=== PATIENT | male | born 1955 | race Two or more races ===

== ENCOUNTER 2017-07-15 02:08 | Emergency (ER) | payer MEDICAID ==
[~2017-07-15] VITALS: Ht 160 cm; Wt 77.6 kg
[2017-07-15 02:51] LABS: Urine RBC None Seen /hpf (0 - 3)
[2017-07-15 03:10] LABS: Basophils # (auto) 0 uL; Basophils % (auto) 0.5 % (0.0-2.0); Eosinophils # (auto) 0 uL; Eosinophils % (auto) 0.3 % (0.0-7.0); Hematocrit 47.5 % (41.0-53.0); Hemoglobin 16.3 g/dL (13.5-17.5); Lymphocytes # (auto) 1.3 uL; Lymphocytes % (auto) 17.5 % (10.0-50.0); Mean Corpuscular Hgb Conc. 34.4 g/dL (32.0-36.0); Monocytes # (auto) 0.3 uL; Monocytes % (auto) 3.9 % (0.0-12.0); Neutrophils # (auto) 5.9 uL; Neutrophils % (auto) 77.8 % (37.0-80.0); Nucleated Red Blood Cells % 0.1 %; Platelet Count (auto) 231 10^3/uL (140-450); Red Cell Distribution Width 12.9 % (11.8-14.3); White Blood Cell 7.6 10^3/uL (4.4-10.8)
[2017-07-15 03:17] LABS: Albumin 3.7 g/dL (3.4-5.0); Anion Gap 8 (5-15); Aspartate Aminotransferase 13 U/L (15-37); BUN/Creatinine Ratio 20.2; Blood Urea Nitrogen 19 mg/dL (7-18); Calcium 8.3 mg/dL (8.5-10.1); Carbon Dioxide 24 mmol/L (21-32); Chloride 107 mmol/L (98-107); GFR African American 105 mL/min; GFR Non-African American 87 mL/min; Glucose 106 mg/dL (74-106); Magnesium 2.4 mg/dL (1.6-2.6); Potassium 4.2 mmol/L (3.5-5.1); Sodium 139 mmol/L (136-145)
[2017-07-15 03:22] LABS: Alkaline Phosphatase 56 U/L (45-117); Bilirubin, Total 1.7 mg/dL (0.2-1.0); Total Protein 7.4 g/dL (6.4-8.2)
[2017-07-15 03:31] LABS: Urine Bilirubin Negative (Negative); Urine Blood Negative /uL (Negative); Urine Color Yellow (Yellow); Urine Glucose Normal (Normal); Urine Ketone 3+ (Negative); Urine Mucus FEW (None Seen); Urine Nitrite Negative (Negative)
[2017-07-15 06:33] VITALS: BP 145/87
[2017-07-15] MEDS ORDERED: KETOROLAC TROMETH 30 MG/ML 1ML VIAL IV ONE (06:45)
== END 2017-07-15 06:43 | disposition home or self-care (01) ==
LOC: ER 02:08
DX: R10.13 Epigastric pain (principal); R11.2 Nausea with vomiting, unspecified; R19.7 Diarrhea, unspecified; I10 Essential (primary) hypertension; Z90.49 Acquired absence of other specified parts of digestive tract
CPT/HCPCS: 36415; 74176; 80053; 81001; 82150; 83690; 83735; 84484; 85025; 93005; 96374; 99285; J1885

== ENCOUNTER 2020-01-07 06:26 | Emergency (ER) | payer MEDICAID ==
[~2020-01-07] VITALS: Ht 160 cm; Wt 76.2 kg
[2020-01-07 07:51] LABS: Basophils # (auto) 0.1 10 ^3/uL (0-0.2); Basophils % (auto) 0.7 % (0.0-2.0); Eosinophils # (auto) 0.1 10 ^3/uL (0-0.8); Eosinophils % (auto) 0.7 % (0.0-7.0); Hematocrit 49.1 % (41.0-53.0); Hemoglobin 16.7 g/dL (13.5-17.5); Lymphocytes % (auto) 11.6 % (10.0-50.0); Mean Corpuscular Hemoglobin 31.7 pg (28.0-32.0); Mean Corpuscular Volume 93.2 fL (80.0-100.0); Monocytes # (auto) 0.4 10 ^3/uL (0-1.3); Monocytes % (auto) 4.3 % (0.0-12.0); Neutrophils # (auto) 7.3 10 ^3/uL (1.6-8.6); Neutrophils % (auto) 82.7 % (37.0-80.0); Platelet Count (auto) 223 10^3/uL (140-450); Red Blood Cells 5.27 10^6/uL (4.5-5.90); White Blood Cell 8.8 10^3/uL (4.4-10.8)
[2020-01-07 08:07] LABS: Chloride 106 mmol/L (98-107); Sodium 138 mmol/L (136-145)
[2020-01-07 08:20] LABS: Alanine Aminotransferase 23 U/L (16-61); Albumin 3.7 g/dL (3.4-5.0); Alkaline Phosphatase 64 U/L (45-117); Anion Gap 2 (5-15); Aspartate Aminotransferase 10 U/L (15-37); BUN/Creatinine Ratio 12.5; Bilirubin, Total 1.4 mg/dL (0.2-1.0); Blood Urea Nitrogen 14 mg/dL (7-18); Calcium 8.8 mg/dL (8.5-10.1); Carbon Dioxide 30 mmol/L (21-32); GFR African American 85 mL/min; GFR Non-African American 71 mL/min; Glucose 117 mg/dL (74-106); Total Protein 7.8 g/dL (6.4-8.2)
[2020-01-07] MEDS ORDERED: IOHEXOL 350 MG/ML 100ML IJ ONE (08:27)
[2020-01-07 10:00] VITALS: BP 125/70
== END 2020-01-07 10:38 | disposition home or self-care (01) ==
LOC: ER 06:26
DX: M54.6 Pain in thoracic spine (principal); F41.9 Anxiety disorder, unspecified; M79.18 Myalgia, other site; E78.5 Hyperlipidemia, unspecified; I10 Essential (primary) hypertension
CPT/HCPCS: 36415; 71045; 71275; 80053; 84484; 85025; 99285; Q9967

== ENCOUNTER 2023-08-24 05:33 | Emergency (ER) | payer MEDICARE, MEDICAID ==
[~2023-08-24] VITALS: Ht 162.6 cm; Wt 79.4 kg
[2023-08-24 06:30] VITALS: BP 143/89; PULSE 95; RESP 20; TEMP 98.1; O2SAT 96
[2023-08-24] MEDS ORDERED: HYDR50TA69 PO (06:52)
[2023-08-24] MEDS ORDERED: PRED20TA2 PO (06:52)
[2023-08-24] MEDS ORDERED: FAMO20TA10 PO (06:52)
[2023-08-24] MEDS ORDERED: DexAMETHasone SOD PHOS 10MG/1ML VIAL INJ IM ONE (07:00)
== END 2023-08-24 07:08 | disposition home or self-care (01) ==
LOC: ER 05:33
DX: T78.49XA Other allergy, initial encounter (principal); L50.9 Urticaria, unspecified; Z79.899 Other long term (current) drug therapy; X58.XXXA Exposure to other specified factors, initial encounter
CPT/HCPCS: 96372; 99283; J1100

== ENCOUNTER 2023-09-04 07:47 | Inpatient (IN) | payer MEDICARE, MEDICAID ==
[~2023-09-04] VITALS: Ht 160 cm; Wt 77.6 kg
[~2023-09-04 07:47] MED LIST: FAMO20TA10 PO; HYDR50TA69 PO; PRED20TA2 PO
[2023-09-04] MEDS: LIDOCAINE W/ EPINEPHRINE 1.5 % INJ 5ML AMP IJ ONE (08:30)
[2023-09-04] MEDS: ACETAMINOPHEN 500 MG TAB PO ONE (08:33)
[2023-09-04] MEDS: cefTRIAXone 1GM/50ML D5W 50 ML IV ONE ×2 (09:15→20:17)
[2023-09-04] MEDS: SODIUM CHLORIDE 0.9% 1,000 ML IVB ONE (09:21)
[2023-09-04 09:42] LABS: Basophils # (auto) 0.1 10 ^3/uL (0-0.2); Basophils % (auto) 0.4 % (0.0-2.0); Eosinophils # (auto) 0.1 10 ^3/uL (0-0.8); Eosinophils % (auto) 0.5 % (0.0-7.0); Hematocrit 45.7 % (41.0-53.0); Hemoglobin 15.4 g/dL (13.5-17.5); Lymphocytes % (auto) 5.1 % (10.0-50.0); Mean Corpuscular Hemoglobin 31.5 pg (28.0-32.0); Mean Corpuscular Hgb Conc. 33.8 g/dL (32.0-36.0); Mean Corpuscular Volume 93.2 fL (80.0-100.0); Monocytes # (auto) 1.6 10 ^3/uL (0-1.3); Monocytes % (auto) 8.6 % (0.0-12.0); Neutrophils # (auto) 16.3 10 ^3/uL (1.6-8.6); Neutrophils % (auto) 85.4 % (37.0-80.0); Nucleated Red Blood Cells % 0.1 %; Red Cell Distribution Width 13.9 % (11.8-14.3); White Blood Cell 19.1 10^3/uL (4.4-10.8)
[2023-09-04] MEDS: KETOROLAC TROMETH 30 MG/ML 1ML VIAL IV ONE (09:58)
[2023-09-04 09:59] LABS: Chloride 104 mmol/L (98-107); Sodium 134 mmol/L (136-145)
[2023-09-04 10:00] LABS: Anion Gap 6 (5-15); Calcium 8.9 mg/dL (8.5-10.1); Carbon Dioxide 24 mmol/L (20-30)
[2023-09-04 10:06] LABS: BUN/Creatinine Ratio 14.9 (10.0-20.0); Blood Urea Nitrogen 15 mg/dL (9-23); Glucose 113 mg/dL (74-106)
[2023-09-04] MEDS: IOHEXOL 300 MG/ML 100ML BOTTLE IJ ONE (10:41)
[2023-09-04 14:04] LABS: INR 1.09 (0.9-1.15); Prothrombin Time 11.4 sec (9.3-11.8)
[2023-09-04] MEDS: CLINDAMYCIN 300MG IV 50 ML IV ONE (19:57)
[2023-09-04] MEDS: CLINDAMYCIN 300MG IV 50 ML IV SCH (20:18)
[2023-09-04] MEDS: ACETAMINOPHEN 325 MG TAB PO PRN (20:18)
[2023-09-04] MEDS: PANTOPRAZOLE 40 MG/10 ML VIAL INJ IV ONE (20:18)
[2023-09-04] MEDS: SODIUM CHLORIDE 0.9% 1,000 ML IV SCH (20:19)
[2023-09-04] MEDS: ASCORBIC ACID 500 MG TAB PO SCH (21:39)
[2023-09-05 06:01] LABS: Basophils # (auto) 0.1 10 ^3/uL (0-0.2); Basophils % (auto) 0.3 % (0.0-2.0); Eosinophils # (auto) 0.1 10 ^3/uL (0-0.8); Eosinophils % (auto) 0.7 % (0.0-7.0); Hematocrit 41.7 % (41.0-53.0); Lymphocytes # (auto) 1.1 10 ^3/uL (0.4-5.4); Lymphocytes % (auto) 4.7 % (10.0-50.0); Mean Corpuscular Hemoglobin 31.3 pg (28.0-32.0); Mean Corpuscular Hgb Conc. 33.6 g/dL (32.0-36.0); Mean Corpuscular Volume 93.1 fL (80.0-100.0); Monocytes # (auto) 2.1 10 ^3/uL (0-1.3); Monocytes % (auto) 9.2 % (0.0-12.0); Neutrophils # (auto) 19.2 10 ^3/uL (1.6-8.6); Neutrophils % (auto) 85.1 % (37.0-80.0); Red Blood Cells 4.48 10^6/uL (4.5-5.90); Red Cell Distribution Width 13.9 % (11.8-14.3); White Blood Cell 22.5 10^3/uL (4.4-10.8)
[2023-09-05 06:19] LABS: Alanine Aminotransferase 36 U/L (7-40); Albumin 3.4 g/dL (3.2-4.8); Alkaline Phosphatase 82 U/L (46-116); Anion Gap 4 (5-15); Aspartate Aminotransferase 15 U/L (13-40); BUN/Creatinine Ratio 17.7 (10.0-20.0); Blood Urea Nitrogen 20 mg/dL (9-23); Calcium 8.3 mg/dL (8.7-10.4); Carbon Dioxide 24 mmol/L (20-30); Chloride 108 mmol/L (98-107); Glucose 96 mg/dL (74-106); Potassium 4.5 mmol/L (3.5-5.1); Sodium 136 mmol/L (136-145)
[2023-09-05 06:20] LABS: Bilirubin, Total 1.6 mg/dL (0.2-1.0)
[2023-09-05] MEDS: cefTRIAXone 1GM/50ML D5W 50 ML IV SCH (08:58)
[2023-09-05 09:30] VITALS: BP 130/67; PULSE 97; RESP 17; TEMP 98.2; O2SAT 97
[2023-09-05] MEDS: MULTIPLE VITAMIN TAB PO SCH (10:00)
[2023-09-05] MEDS: ZINC SULFATE 220mg CAP or TAB PO SCH (10:00)
[2023-09-05] MEDS: DOXYCYCLINE 100MG/250ML 250 ML IV SCH (10:48)
[2023-09-05] MEDS: PANTOPRAZOLE 40 MG/10 ML VIAL INJ IV SCH (10:48)
[2023-09-05] MEDS ORDERED: LOSA50TA46 PO (12:02)
[2023-09-05] MEDS ORDERED: TAMS1CAP25 PO (12:02)
[2023-09-05 14:24] LABS: Magnesium 2.3 mg/dL (1.6-2.6)
[2023-09-05 17:00] VITALS: BP 113/59; PULSE 87; RESP 17; TEMP 98.8; O2SAT 96
[2023-09-05] MEDS: PIPERACILLIN-TAZOB 3.375GM 100 ML IV SCH (17:01)
[2023-09-05 20:00] VITALS: BP 123/59; PULSE 98; RESP 20; RESP 22; TEMP 99.5; O2SAT 96
[2023-09-05 21:09] LABS: Urine Bacteria NONE SEEN /hpf (None Seen); Urine Blood Negative /uL (Negative); Urine Clarity Clear (Clear); Urine Color Colorless (Yellow); Urine Protein, UAD Negative (Negative); Urine Specific Gravity 1.016 (1.001-1.035); Urine Urobilinogen Normal (Negative); Urine WBC 2 /hpf (0 - 3)
[2023-09-05 22:00] VITALS: BP 123/69; PULSE 105; RESP 20; TEMP 101; O2SAT 96
[2023-09-06 05:00] VITALS: BP 125/76; PULSE 99; RESP 16; TEMP 99.8; O2SAT 96
[2023-09-06] MEDS ORDERED: SODIUM CHLORIDE 0.9% 1,000 ML IV SCH (07:00)
[2023-09-06 07:18] LABS: Basophils # (auto) 0.1 10 ^3/uL (0-0.2); Basophils % (auto) 0.2 % (0.0-2.0); Eosinophils # (auto) 0.1 10 ^3/uL (0-0.8); Eosinophils % (auto) 0.7 % (0.0-7.0); Hematocrit 34.5 % (41.0-53.0); Hemoglobin 11.5 g/dL (13.5-17.5); Lymphocytes # (auto) 1.3 10 ^3/uL (0.4-5.4); Lymphocytes % (auto) 5.9 % (10.0-50.0); Mean Corpuscular Hemoglobin 30.7 pg (28.0-32.0); Mean Corpuscular Hgb Conc. 33.3 g/dL (32.0-36.0); Mean Corpuscular Volume 92.2 fL (80.0-100.0); Monocytes # (auto) 1.6 10 ^3/uL (0-1.3); Monocytes % (auto) 7.6 % (0.0-12.0); Neutrophils # (auto) 18.2 10 ^3/uL (1.6-8.6); Neutrophils % (auto) 85.6 % (37.0-80.0); Red Blood Cells 3.74 10^6/uL (4.5-5.90); Red Cell Distribution Width 14.1 % (11.8-14.3); White Blood Cell 21.3 10^3/uL (4.4-10.8)
[2023-09-06 07:19] LABS: Alanine Aminotransferase 24 U/L (7-40); Albumin 2.2 g/dL (3.2-4.8); Alkaline Phosphatase 62 U/L (46-116); Anion Gap 7 (5-15); Aspartate Aminotransferase 11 U/L (13-40); BUN/Creatinine Ratio 15.9 (10.0-20.0); Blood Urea Nitrogen 10 mg/dL (9-23); Carbon Dioxide 18 mmol/L (20-30); Chloride 117 mmol/L (98-107); Glucose 72 mg/dL (74-106); Sodium 142 mmol/L (136-145)
[2023-09-06 07:20] LABS: Bilirubin, Total 1.2 mg/dL (0.2-1.0); Total Protein 3.9 g/dL (5.7-8.2)
[2023-09-06 07:26] LABS: Magnesium 1.3 mg/dL (1.6-2.6)
[2023-09-06 07:27] LABS: Calcium 5.4 mg/dL (8.7-10.4)
[2023-09-06 09:00] VITALS: BP 135/74; PULSE 91; RESP 20; TEMP 99.6; O2SAT 96
[2023-09-06] MEDS ORDERED: VANCOMYCIN PER PHARMACY 0 MG IV SCH (11:30)
[2023-09-06] MEDS: PANTOPRAZOLE 40 MG TAB PO SCH (11:36)
[2023-09-06] MEDS: MAGNESIUM SULFATE 1GM/100ML 100 ML IV SCH (11:36)
[2023-09-06] MEDS: POTASSIUM CHL 20 Meq TABLET PO ONE (11:37)
[2023-09-06 13:00] VITALS: BP 132/81; PULSE 94; RESP 18; TEMP 99.6; O2SAT 97
[2023-09-06 13:37] LABS: Alanine Aminotransferase 38 U/L (7-40); Albumin 3.4 g/dL (3.2-4.8); Alkaline Phosphatase 85 U/L (46-116); Anion Gap 5 (5-15); Aspartate Aminotransferase 18 U/L (13-40); BUN/Creatinine Ratio 12.2 (10.0-20.0); Bilirubin, Total 1.5 mg/dL (0.2-1.0); Blood Urea Nitrogen 11 mg/dL (9-23); Calcium 8.1 mg/dL (8.7-10.4); Carbon Dioxide 23 mmol/L (20-30); Chloride 106 mmol/L (98-107); Glucose 105 mg/dL (74-106); Magnesium 2.5 mg/dL (1.6-2.6); Potassium 4.2 mmol/L (3.5-5.1); Sodium 134 mmol/L (136-145); Total Protein 6.1 g/dL (5.7-8.2)
[2023-09-06] MEDS: OMNIPAQUE 12mg/ml 500ml ORAL SOLUTION PO ONE (14:30)
[2023-09-06] MEDS ORDERED: OMNIPAQUE 12mg/ml 500ml ORAL SOLUTION PO ONE (14:30)
[2023-09-06] MEDS: VANCOMYCIN 1GM/200ML 200 ML IV ONE (15:20)
[2023-09-06] MEDS: CALCIUM GLUC 1,000mg/50ml-NS 50 ML IV ONE (16:57)
[2023-09-06 17:00] VITALS: BP 135/81; PULSE 90; RESP 20; TEMP 98.4; O2SAT 97
[2023-09-06 20:00] VITALS: BP 119/71; PULSE 85; RESP 22; TEMP 98.1; O2SAT 96
[2023-09-06 22:00] VITALS: BP 119/71; PULSE 85; RESP 22; TEMP 98.1; O2SAT 96
[2023-09-07] VITALS (7 sets, daily range): BP systolic 116–136; BP diastolic 67–84; PULSE 74–91; RESP 17–20; TEMP 98.1–98.8; O2SAT 92–97
[2023-09-07] MEDS: VANCOMYCIN 1GM/200ML 200 ML IV SCH (01:26)
[2023-09-07 06:41] LABS: Basophils # (auto) 0.1 10 ^3/uL (0-0.2); Basophils % (auto) 0.5 % (0.0-2.0); Eosinophils # (auto) 0.3 10 ^3/uL (0-0.8); Eosinophils % (auto) 1.5 % (0.0-7.0); Hematocrit 44.9 % (41.0-53.0); Lymphocytes # (auto) 2.2 10 ^3/uL (0.4-5.4); Lymphocytes % (auto) 10.1 % (10.0-50.0); Mean Corpuscular Hemoglobin 31.5 pg (28.0-32.0); Mean Corpuscular Hgb Conc. 33.4 g/dL (32.0-36.0); Mean Corpuscular Volume 94.3 fL (80.0-100.0); Monocytes # (auto) 1.5 10 ^3/uL (0-1.3); Monocytes % (auto) 7.1 % (0.0-12.0); Neutrophils # (auto) 17.4 10 ^3/uL (1.6-8.6); Neutrophils % (auto) 80.8 % (37.0-80.0); Red Blood Cells 4.76 10^6/uL (4.5-5.90); Red Cell Distribution Width 14.1 % (11.8-14.3); White Blood Cell 21.5 10^3/uL (4.4-10.8)
[2023-09-07 06:52] LABS: Alanine Aminotransferase 62 U/L (7-40); Albumin 3.9 g/dL (3.2-4.8); Alkaline Phosphatase 107 U/L (46-116); Anion Gap 9 (5-15); Aspartate Aminotransferase 29 U/L (13-40); BUN/Creatinine Ratio 9.2 (10.0-20.0); Bilirubin, Total 1.8 mg/dL (0.2-1.0); Blood Urea Nitrogen 9 mg/dL (9-23); Calcium 8.8 mg/dL (8.7-10.4); Carbon Dioxide 21 mmol/L (20-30); Chloride 106 mmol/L (98-107); Glucose 101 mg/dL (74-106); Magnesium 2.5 mg/dL (1.6-2.6); Potassium 4.2 mmol/L (3.5-5.1); Sodium 136 mmol/L (136-145)
[2023-09-07 06:53] LABS: Total Protein 7.1 g/dL (5.7-8.2)
[2023-09-07 07:19] LABS: CRP High Sensitivity 18.77 mg/dL (<1.0)
[2023-09-07] MEDS: HYDROcodone-ACET 5/325MG TAB PO PRN (11:47)
[2023-09-07] MEDS ORDERED: fentaNYL CITRATE 100 MCG/2 ML VL ONE (13:48)
[2023-09-07] MEDS ORDERED: DexAMETHasone SOD PHOS 10MG/1ML VIAL INJ ONE (14:14)
[2023-09-07] MEDS ORDERED: PROPOFOL 10 MG/ML 20 ML IV ONE (14:14)
[2023-09-07] MEDS ORDERED: ONDANSETRON HCL 4 MG/2 ML VIAL ONE (14:14)
[2023-09-07] MEDS ORDERED: MEPERIDINE HCL (50 MG/ML) 1 ML VIAL ONE (14:15)
[2023-09-07] MEDS ORDERED: HYDROmorphone HCL 2 MG/ML VL/or syr IV PRN (15:00)
[2023-09-07] MEDS ORDERED: ONDANSETRON HCL 4 MG/2 ML VIAL IV PRN (15:00)
[2023-09-07] MEDS ORDERED: MEPERIDINE HCL (25 MG/ML) 1ML VIAL IV PRN (15:00)
[2023-09-08] VITALS (7 sets, daily range): BP systolic 122–134; BP diastolic 69–82; PULSE 67–81; RESP 18–19; TEMP 97.4–98; O2SAT 95–99
[2023-09-08 06:32] LABS: Basophils # (auto) 0 10 ^3/uL (0-0.2); Basophils % (auto) 0.1 % (0.0-2.0); Eosinophils # (auto) 0 10 ^3/uL (0-0.8); Hematocrit 44.5 % (41.0-53.0); Hemoglobin 14.7 g/dL (13.5-17.5); Lymphocytes # (auto) 1.3 10 ^3/uL (0.4-5.4); Lymphocytes % (auto) 7.2 % (10.0-50.0); Mean Corpuscular Hgb Conc. 33.1 g/dL (32.0-36.0); Mean Corpuscular Volume 93.8 fL (80.0-100.0); Monocytes # (auto) 0.4 10 ^3/uL (0-1.3); Monocytes % (auto) 2.3 % (0.0-12.0); Neutrophils # (auto) 16.8 10 ^3/uL (1.6-8.6); Neutrophils % (auto) 90.4 % (37.0-80.0); Red Blood Cells 4.75 10^6/uL (4.5-5.90); White Blood Cell 18.6 10^3/uL (4.4-10.8)
[2023-09-08 06:50] LABS: Alanine Aminotransferase 80 U/L (7-40); Albumin 3.8 g/dL (3.2-4.8); Alkaline Phosphatase 100 U/L (46-116); Anion Gap 7 (5-15); Aspartate Aminotransferase 43 U/L (13-40); BUN/Creatinine Ratio 14.1 (10.0-20.0); Blood Urea Nitrogen 14 mg/dL (9-23); Calcium 8.8 mg/dL (8.7-10.4); Carbon Dioxide 22 mmol/L (20-30); Chloride 105 mmol/L (98-107); Glucose 129 mg/dL (74-106); Magnesium 2.2 mg/dL (1.6-2.6); Potassium 4.4 mmol/L (3.5-5.1); Sodium 134 mmol/L (136-145)
[2023-09-08 06:51] LABS: Bilirubin, Total 1.1 mg/dL (0.2-1.0)
[2023-09-08] MEDS: VANCOMYCIN 1GM/200ML 200 ML IV SCH (11:23)
[2023-09-08] MEDS ORDERED: ONDANSETRON HCL 4 MG/2 ML VIAL IV PRN (16:00)
[2023-09-08] MEDS: MEROPENEM 1GM IVPB 50 ML IV SCH (22:04)
[2023-09-09] VITALS (7 sets, daily range): BP systolic 124–147; BP diastolic 80–92; PULSE 71–85; RESP 16–18; TEMP 97.5–98.2; O2SAT 94–99
[2023-09-09] MEDS ORDERED: VANCOMYCIN 1GM/200ML 200 ML IV SCH
[2023-09-09 06:13] LABS: Basophils # (auto) 0.1 10 ^3/uL (0-0.2); Basophils % (auto) 0.4 % (0.0-2.0); Eosinophils # (auto) 0.1 10 ^3/uL (0-0.8); Eosinophils % (auto) 0.9 % (0.0-7.0); Hematocrit 43.2 % (41.0-53.0); Hemoglobin 14.2 g/dL (13.5-17.5); Lymphocytes # (auto) 2.8 10 ^3/uL (0.4-5.4); Lymphocytes % (auto) 17.5 % (10.0-50.0); Mean Corpuscular Hemoglobin 30.8 pg (28.0-32.0); Mean Corpuscular Hgb Conc. 32.8 g/dL (32.0-36.0); Mean Corpuscular Volume 94.1 fL (80.0-100.0); Monocytes # (auto) 0.9 10 ^3/uL (0-1.3); Monocytes % (auto) 5.8 % (0.0-12.0); Neutrophils % (auto) 75.4 % (37.0-80.0); Red Blood Cells 4.59 10^6/uL (4.5-5.90); Red Cell Distribution Width 13.9 % (11.8-14.3)
[2023-09-09 06:29] LABS: Carbon Dioxide 24 mmol/L (20-30); Chloride 107 mmol/L (98-107); Sodium 139 mmol/L (136-145)
[2023-09-09 06:30] LABS: Calcium 8.7 mg/dL (8.7-10.4)
[2023-09-09 06:35] LABS: BUN/Creatinine Ratio 18.4 (10.0-20.0); Blood Urea Nitrogen 19 mg/dL (9-23); Glucose 95 mg/dL (74-106); Magnesium 2.2 mg/dL (1.6-2.6)
[2023-09-09 06:38] LABS: Anion Gap 8 (5-15)
[2023-09-10 05:17] VITALS: BP 138/72; PULSE 84; RESP 18; TEMP 98; O2SAT 96
[2023-09-10 06:53] LABS: Basophils # (auto) 0.1 10 ^3/uL (0-0.2); Basophils % (auto) 1.2 % (0.0-2.0); Eosinophils # (auto) 0.3 10 ^3/uL (0-0.8); Eosinophils % (auto) 3.5 % (0.0-7.0); Hematocrit 45.4 % (41.0-53.0); Hemoglobin 14.8 g/dL (13.5-17.5); Lymphocytes # (auto) 1.6 10 ^3/uL (0.4-5.4); Lymphocytes % (auto) 16.9 % (10.0-50.0); Mean Corpuscular Hemoglobin 30.7 pg (28.0-32.0); Mean Corpuscular Hgb Conc. 32.6 g/dL (32.0-36.0); Mean Corpuscular Volume 94.2 fL (80.0-100.0); Monocytes # (auto) 0.7 10 ^3/uL (0-1.3); Monocytes % (auto) 7.2 % (0.0-12.0); Neutrophils # (auto) 6.7 10 ^3/uL (1.6-8.6); Neutrophils % (auto) 71.2 % (37.0-80.0); Nucleated Red Blood Cells % 0.1 %; Red Blood Cells 4.82 10^6/uL (4.5-5.90); Red Cell Distribution Width 14.1 % (11.8-14.3); White Blood Cell 9.4 10^3/uL (4.4-10.8)
[2023-09-10 07:08] LABS: Alanine Aminotransferase 146 U/L (7-40); Albumin 3.6 g/dL (3.2-4.8); Alkaline Phosphatase 77 U/L (46-116); Anion Gap 8 (5-15); Aspartate Aminotransferase 46 U/L (13-40); BUN/Creatinine Ratio 19.4 (10.0-20.0); Blood Urea Nitrogen 18 mg/dL (9-23); Calcium 8.7 mg/dL (8.7-10.4); Carbon Dioxide 24 mmol/L (20-30); Chloride 106 mmol/L (98-107); Glucose 97 mg/dL (74-106); Magnesium 2.3 mg/dL (1.6-2.6); Sodium 138 mmol/L (136-145)
[2023-09-10 07:09] LABS: Bilirubin, Total 0.8 mg/dL (0.2-1.0); Total Protein 6.6 g/dL (5.7-8.2)
[2023-09-10 08:00] VITALS: PULSE 74; RESP 16; O2SAT 99
[2023-09-10 08:49] VITALS: BP 147/95; PULSE 106; RESP 19; TEMP 98.2; O2SAT 97
[2023-09-10] MEDS: ERTAPENEM SOD INJ 1 GM in SODIUM CHL 0.9% 50 ML IV SCH (10:55)
[2023-09-10 13:00] VITALS: BP 151/82; PULSE 83; RESP 16; TEMP 98.6; O2SAT 97
[2023-09-10] MEDS: LOSARTAN POTASSIUM 50 MG TAB PO ONE (15:22)
[2023-09-11] MEDS ORDERED: LOSARTAN POTASSIUM 50 MG TAB PO SCH (10:00)
== END 2023-09-10 15:20 | disposition home health service (06) | DRG 854 ==
LOC: ER 07:47 → OVERFLOW 12:47 → EAST 09-05 09:30
PROVIDERS: ADMIT Internal Medicine Geriatric Medicine; ATTEND Internal Medicine Geriatric Medicine
PROC: 0D9Q0ZZ Drainage of Anus, Open Approach (ICD-10-PCS; principal; 2023-09-07 14:06)
PROC: 05HC33Z Insertion of Infusion Device into Left Basilic Vein, Percutaneous Approach (ICD-10-PCS; 2023-09-09)
PROC: B54NZZA Ultrasonography of Left Upper Extremity Veins, Guidance (ICD-10-PCS; 2023-09-09)
DX: A41.9 Sepsis, unspecified organism (principal); K61.0 Anal abscess; L03.317 Cellulitis of buttock; K57.30 Diverticulosis of large intestine without perforation or abscess without bleeding; K76.0 Fatty (change of) liver, not elsewhere classified; N40.0 Benign prostatic hyperplasia without lower urinary tract symptoms; E78.5 Hyperlipidemia, unspecified; I25.10 Atherosclerotic heart disease of native coronary artery without angina pectoris; E80.6 Other disorders of bilirubin metabolism; E83.42 Hypomagnesemia; E87.6 Hypokalemia; E83.51 Hypocalcemia
CPT/HCPCS: 36415; 71045; 74177; 80048; 80053; 80061; 80202; 81001; 83605; 83735; 84443; 85025; 85610; 86141; 87040; 87070; 87075; 87076; 87077; 87081; 87186; 87205; 93005; C9113; G0378; J1100; J1335; J1885; J2185; J2405; J2543; J2704; J3490

== ENCOUNTER 2024-02-07 04:07 | Emergency (ER) | payer MEDICARE, MEDICAID ==
[~2024-02-07] VITALS: Ht 162.6 cm; Wt 74.0 kg
[~2024-02-07 04:07] MED LIST changes: +LOSA-534 PO; -PRED20TA2 PO; +TAMS1CAP25 PO
[2024-02-07 07:20] VITALS: BP 129/77; PULSE 99; RESP 17; TEMP 98; O2SAT 98
[2024-02-07] MEDS ORDERED: VALA1TAB PO (07:51)
[2024-02-07] MEDS ORDERED: LORA-1126 PO (07:51)
[2024-02-07] MEDS: DexAMETHasone SOD PHOS 10MG/1ML VIAL INJ IM ONE (08:02)
== END 2024-02-07 08:07 | disposition home or self-care (01) ==
LOC: ER 04:07
DX: L29.9 Pruritus, unspecified (principal); Z79.899 Other long term (current) drug therapy
CPT/HCPCS: 96372; 99283; J1100

== ENCOUNTER 2024-02-23 16:05 | Inpatient (IN) | payer MEDICARE, MEDICAID ==
[~2024-02-23] VITALS: Ht 157.5 cm; Wt 80.6 kg
[~2024-02-23 16:05] MED LIST changes: +LORA-1126 PO; +VALA1TAB PO
[2024-02-23] MEDS: SODIUM CHLORIDE 0.9% 1,000 ML IV ONE (16:30)
[2024-02-23] MEDS: HYDROcodone-ACET 10/325MG TAB PO ONE (16:30)
[2024-02-23] MEDS: CLINDAMYCIN 600MG IV 50 ML IV ONE (16:30)
[2024-02-23 17:08] LABS: Basophils # (auto) 0.1 10 ^3/uL (0-0.2); Basophils % (auto) 0.7 % (0.0-2.0); Eosinophils # (auto) 0.1 10 ^3/uL (0-0.8); Hematocrit 47.2 % (41.0-53.0); Hemoglobin 16.4 g/dL (13.5-17.5); Lymphocytes % (auto) 17.3 % (10.0-50.0); Mean Corpuscular Hemoglobin 32.3 pg (28.0-32.0); Mean Corpuscular Hgb Conc. 34.7 g/dL (32.0-36.0); Mean Corpuscular Volume 93.2 fL (80.0-100.0); Monocytes # (auto) 0.6 10 ^3/uL (0-1.3); Monocytes % (auto) 5.5 % (0.0-12.0); Neutrophils # (auto) 8.6 10 ^3/uL (1.6-8.6); Neutrophils % (auto) 75.5 % (37.0-80.0); Red Blood Cells 5.06 10^6/uL (4.5-5.90); Red Cell Distribution Width 14.6 % (11.8-14.3); White Blood Cell 11.4 10^3/uL (4.4-10.8)
[2024-02-23 17:23] LABS: Chloride 107 mmol/L (98-107); Potassium 4.2 mmol/L (3.5-5.1); Sodium 139 mmol/L (136-145)
[2024-02-23 17:24] LABS: Anion Gap 4 (5-15); Calcium 9.9 mg/dL (8.7-10.4); Carbon Dioxide 28 mmol/L (20-30)
[2024-02-23 17:29] LABS: Blood Urea Nitrogen 16 mg/dL (9-23); Glucose 126 mg/dL (74-106)
[2024-02-23] MEDS: cefTRIAXone 1GM/50ML D5W 50 ML IV ONE (18:59)
[2024-02-23 19:02] VITALS: PULSE 92; RESP 18; O2SAT 97
[2024-02-24] MEDS ORDERED: NITROGLYCERIN 0.4 MG SL TAB SL PRN (03:30)
[2024-02-24] MEDS ORDERED: ACETAMINOPHEN 325 MG TAB PO PRN (03:30)
[2024-02-24] MEDS ORDERED: DOCUSATE SOD 100 MG CAP PO PRN (03:30)
[2024-02-24] MEDS ORDERED: HYDROcodone-ACET 5/325MG TAB PO PRN (03:30)
[2024-02-24] MEDS ORDERED: MORPHINE SULFATE INJ 2 MG/ml SYRG IV PRN (03:30)
[2024-02-24] MEDS ORDERED: ONDANSETRON HCL 4 MG/2 ML VIAL IV PRN (03:30)
[2024-02-24] MEDS ORDERED: hydrALAZINE HCL 20 MG/ML VL IV PRN (03:30)
[2024-02-24 05:07] VITALS: BP 146/85; PULSE 76; RESP 18; TEMP 97.8; O2SAT 76; O2SAT 97
[2024-02-24] MEDS: CLINDAMYCIN 600MG IV 50 ML IV SCH (05:51)
[2024-02-24] MEDS: SODIUM CHLORIDE 0.9% 1,000 ML IV SCH (05:51)
[2024-02-24 07:11] LABS: Alanine Aminotransferase 15 U/L (7-40); Albumin 3.8 g/dL (3.2-4.8); Alkaline Phosphatase 58 U/L (46-116); Anion Gap 6 (5-15); Aspartate Aminotransferase < 8 U/L (13-40); BUN/Creatinine Ratio 15.2 (10.0-20.0); Bilirubin, Total 2.4 mg/dL (0.2-1.0); Blood Urea Nitrogen 15 mg/dL (9-23); Calcium 9.1 mg/dL (8.7-10.4); Carbon Dioxide 27 mmol/L (20-30); Chloride 107 mmol/L (98-107); Glucose 99 mg/dL (74-106); Potassium 3.9 mmol/L (3.5-5.1); Sodium 140 mmol/L (136-145); Total Protein 6.2 g/dL (5.7-8.2)
[2024-02-24 07:20] LABS: Basophils # (auto) 0.1 10 ^3/uL (0-0.2); Basophils % (auto) 0.7 % (0.0-2.0); Eosinophils # (auto) 0.1 10 ^3/uL (0-0.8); Eosinophils % (auto) 1.4 % (0.0-7.0); Hematocrit 42.7 % (41.0-53.0); Hemoglobin 14.9 g/dL (13.5-17.5); Lymphocytes # (auto) 1.7 10 ^3/uL (0.4-5.4); Lymphocytes % (auto) 18.8 % (10.0-50.0); Mean Corpuscular Hemoglobin 32.6 pg (28.0-32.0); Mean Corpuscular Volume 93.2 fL (80.0-100.0); Monocytes # (auto) 0.5 10 ^3/uL (0-1.3); Monocytes % (auto) 5.8 % (0.0-12.0); Neutrophils # (auto) 6.6 10 ^3/uL (1.6-8.6); Neutrophils % (auto) 73.3 % (37.0-80.0); Red Blood Cells 4.58 10^6/uL (4.5-5.90); Red Cell Distribution Width 14.3 % (11.8-14.3)
[2024-02-24 08:00] VITALS: PULSE 81; RESP 17; O2SAT 99
[2024-02-24 08:50] VITALS: BP 145/82; PULSE 81; RESP 17; TEMP 98.2; O2SAT 99
[2024-02-24] MEDS: FAMOTIDINE (10MG/ML) 2ML VL IV SCH (11:46)
[2024-02-24 13:00] VITALS: BP 139/83; PULSE 80; RESP 16; TEMP 98; O2SAT 96
[2024-02-24 16:34] VITALS: BP 121/75; PULSE 66; RESP 17; TEMP 98.1; O2SAT 97
[2024-02-24 21:00] VITALS: BP 137/77; PULSE 69; RESP 16; TEMP 98.1; O2SAT 95
[2024-02-24] MEDS: cefTRIAXone 1GM/50ML D5W 50 ML IV SCH (22:26)
[2024-02-25 04:53] VITALS: BP 137/95; PULSE 70; RESP 16; TEMP 97.6; O2SAT 97
[2024-02-25 05:54] LABS: Basophils # (auto) 0.1 10 ^3/uL (0-0.2); Eosinophils # (auto) 0.2 10 ^3/uL (0-0.8); Eosinophils % (auto) 2.6 % (0.0-7.0); Hematocrit 43.8 % (41.0-53.0); Hemoglobin 15.1 g/dL (13.5-17.5); Lymphocytes # (auto) 1.9 10 ^3/uL (0.4-5.4); Lymphocytes % (auto) 23.4 % (10.0-50.0); Mean Corpuscular Hemoglobin 32.4 pg (28.0-32.0); Mean Corpuscular Hgb Conc. 34.5 g/dL (32.0-36.0); Mean Corpuscular Volume 93.9 fL (80.0-100.0); Monocytes # (auto) 0.6 10 ^3/uL (0-1.3); Monocytes % (auto) 7.7 % (0.0-12.0); Neutrophils # (auto) 5.4 10 ^3/uL (1.6-8.6); Neutrophils % (auto) 65.3 % (37.0-80.0); Red Blood Cells 4.67 10^6/uL (4.5-5.90); Red Cell Distribution Width 14.4 % (11.8-14.3); White Blood Cell 8.3 10^3/uL (4.4-10.8)
[2024-02-25 06:11] LABS: Alanine Aminotransferase 14 U/L (7-40); Albumin 3.6 g/dL (3.2-4.8); Alkaline Phosphatase 54 U/L (46-116); Anion Gap 7 (5-15); Aspartate Aminotransferase < 8 U/L (13-40); BUN/Creatinine Ratio 13.1 (10.0-20.0); Bilirubin, Total 2.3 mg/dL (0.2-1.0); Blood Urea Nitrogen 13 mg/dL (9-23); Calcium 9.2 mg/dL (8.7-10.4); Carbon Dioxide 26 mmol/L (20-30); Chloride 107 mmol/L (98-107); Glucose 95 mg/dL (74-106); Potassium 4.6 mmol/L (3.5-5.1); Sodium 140 mmol/L (136-145); Total Protein 6.3 g/dL (5.7-8.2)
[2024-02-25 08:00] VITALS: PULSE 70; O2SAT 97
[2024-02-25] MEDS ORDERED: CIPR-173 PO (08:25)
[2024-02-25] MEDS ORDERED: METR-344 PO (08:25)
[2024-02-25 08:52] VITALS: BP 142/82; PULSE 70; RESP 17; TEMP 98.2; O2SAT 97
[2024-02-25 10:51] VITALS: BP 142/82; PULSE 70; RESP 17; TEMP 98.2; O2SAT 97
== END 2024-02-25 11:18 | disposition home or self-care (01) | DRG 395 ==
LOC: ER 16:05 → OVERFLOW 02-24 03:33 → CENTRAL 02-24 04:55
PROVIDERS: ADMIT Nurse Practitioner Family; ATTEND Family Medicine
DX: K60.5 Anorectal fistula (principal); I10 Essential (primary) hypertension; D72.829 Elevated white blood cell count, unspecified; Z82.49 Family history of ischemic heart disease and other diseases of the circulatory system; Z79.899 Other long term (current) drug therapy
CPT/HCPCS: 36415; 72195; 80048; 80053; 83605; 85025; 87040; G0378; J3490